=== PATIENT | female | born 1980 | race Caucasian/White ===

== ENCOUNTER 2016-09-28 07:36 | Emergency (ER) | payer MEDICAID ==
[2016-09-28 07:46] VITALS: BP 112/79; PULSE 91; RESP 20; TEMP 98.3; O2SAT 97
[2016-09-28] MEDS ORDERED: Silver Sulfadiazine 1% Cream (20 gm) TOP STA (08:01)
[2016-09-28] MEDS ORDERED: Naproxen 550 mg Tab PO STA (08:01)
--- NOTE | 2016-09-28 08:02 | C.PDOC ---
History Of Present Illness Patient is a 36 y/o female, whose PMHx includes, presents to the ED for evaluation of Time Seen by Provider: 09/28/16 07:53 Chief Complaint (Nursing): Abnormal Skin Integrity Past Medical History Reviewed: Historical Data, Nursing Documentation, Vital Signs Vital Signs: Last Vital Signs Temp 98.3 F 09/28/16 07:44 Pulse 91 H 09/28/16 07:44 Resp 20 09/28/16 07:44 BP 112/79 09/28/16 07:44 Pulse Ox 97 09/28/16 07:44 Family History: States: Unknown Family Hx - Social History Hx Tobacco Use: No Hx Alcohol Use: No Hx Substance Use: No - Immunization History Hx Tetanus Toxoid Vaccination: No Hx Influenza Vaccination: No Hx Pneumococcal Vaccination: No ED Course And Treatment O2 Sat by Pulse Oximetry: 97 - 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 - Scribe Statement The provider has reviewed the documentation as recorded by the Maruibbraxton Banda All medical record entries made by the Good were at my direction and personally dictated by me. I have reviewed the chart and agree that the record accurately reflects my personal performance of the history, physical exam, medical decision making, and the department course for this patient. I have also personally directed, reviewed, and agree with the discharge instructions and disposition.
--- NOTE | 2016-09-28 08:04 | C.PDOC ---
History Of Present Illness Patient is a 36 y/o female that presents to the ED for evaluation burn to upper medial and anterior aspect of right thigh. Patient states she burned her right thigh after dropping bowl of hot soup yesterday. Patient states she applied toothpaste, and cold cloth to affected area yesterday with no improvement. Patient states that she developed a blister on the burn area this morning which prompted her to visit ED. Notes she is not UTD with Tetanus. Otherwise, denies any fever, chills, discharge, redness, or any other associated symptoms at this time. Time Seen by Provider: 09/28/16 07:53 Chief Complaint (Nursing): Abnormal Skin Integrity History Per: Patient History/Exam Limitations: no limitations Onset/Duration Of Symptoms: Days (1) Current Symptoms Are (Timing): Still Present Location Of Injury: Right: Thigh, Anterior: Thigh Quality Of Symptoms: denies: Itching, Draining Recent travel outside of the [place]: No Additional History Per: Patient Past Medical History Reviewed: Historical Data, Nursing Documentation, Vital Signs Vital Signs: Last Vital Signs Temp 98.3 F 09/28/16 07:44 Pulse 91 H 09/28/16 07:44 Resp 20 09/28/16 07:44 BP 112/79 09/28/16 07:44 Pulse Ox 97 09/28/16 08:25 Family History: States: Unknown Family Hx - Social History Hx Tobacco Use: No Hx Alcohol Use: No Hx Substance Use: No - Immunization History Hx Tetanus Toxoid Vaccination: No Hx Influenza Vaccination: No Hx Pneumococcal Vaccination: No Review Of Systems Except As Marked, All Systems Reviewed And Found Negative. Constitutional: Negative for: Fever, Chills Musculoskeletal: Negative for: Leg Pain Skin: Positive for: Other (burn to right thigh) Neurological: Negative for: Weakness, Numbness Physical Exam - Physical Exam Appears: Non-toxic, No Acute Distress Skin: Warm, Dry, Other (10cm area of 1st degree burn with 3cm of vesicle in center at the anterior proximal and medial aspect of right thigh) Head: Atraumatic, Normacephalic Eye(s): bilateral: Normal Inspection Neck: Normal ROM, Supple Chest: Symmetrical Extremity: Normal ROM, No Tenderness, Capillary Refill (< 2 sec.), No Deformity , No Swelling Pulses: Left Femoral: Normal, Right Femoral: Normal Neurological/Psych: Oriented x3, Normal Speech, Normal Cognition, Normal Motor, Normal Sensation ED Course And Treatment O2 Sat by Pulse Oximetry: 97 (on RA) Pulse Ox Interpretation: Normal Progress Note: Patient was treated with Naproxen, and Silvadene topical cream. Patient was also given Tetanus Vaccination. Patient is being discharged home, with instructions to follow up with burn clinic. Medical Decision Making Medical Decision Makin36 y/o female that presents to the ED for evaluation burn to upper medial and anterior aspect of right thigh. Plan: - Silvadene - Naprosyn - Wound care - Tdap Pt instructed on proper wound care for her burn. Rx provided for silvadene and instructed on how to apply, advised to avoid sun exposure to wound. Otherwise pt advised to also f/u with her pmd or burn clinic in 2 days without fail for re -evaluation. Advised to return to the ER at any time for any new or worsening symptoms. 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 - Scribe Statement The provider has reviewed the documentation as recorded by the Maruibbraxton Banda All medical record entries made by the Good were at my direction and personally dictated by me. I have reviewed the chart and agree that the record accurately reflects my personal performance of the history, physical exam, medical decision making, and the department course for this patient. I have also personally directed, reviewed, and agree with the discharge instructions and disposition.
[2016-09-28] MEDS ORDERED: Silver Sulfadiazine 1% Cream (20 gm) ONE (08:06)
[2016-09-28] MEDS ORDERED: Naproxen 550 mg Tab PO ONE (08:06)
== END 2016-09-28 08:24 | disposition home or self-care (01) ==
LOC: C.ER 07:36
DX: T24.211A Burn of second degree of right thigh, initial encounter (principal); X10.1XXA Contact with hot food, initial encounter

== ENCOUNTER 2018-04-08 15:07 | Emergency (ER) | payer MEDICAID ==
[2018-04-08 15:26] VITALS: O2SAT 98
[2018-04-08] MEDS ORDERED: Lidocaine 5% Patch TD STA (17:23)
--- NOTE | 2018-04-08 17:26 | C.PDOC ---
History Of Present Illness Patient is a 38 year old female who presents to the ED c/o dry, nonproductive persistent cough that has been present for 2 months. Patient notes an associated bilateral chest wall plain from the constant coughing. She states that she takes Tylenol, but her sx reoccur once it wears off. She also reports goig to her PMD for the same sx in 02/2018, where she was given promethazine syrup with limited improvement. Patient denies fever, TAI/SOB, sick contacts, travel, weight loss, urinary symptoms, asthma, or smoking. PERSIST COUGH X 2 MO. DRY, SEALANT MIXER. NONEXERTIONAL. DENIES FEVER, TAI/SOB, SICK CONTACT EXPOSURE, TRAVEL, WT LOSS. PS +B/L CHEST WALL PAIN FROM CONSTANT COUGH. RELIEF W TYLENOL BUT RECURS ONCE MEDICATION WEARS OFF. SAW PMD FOR SAME 02/2018 GIVEN PROMETHAZINE SYRUP W LIMITED IMPROVE. NO SMOKE, ASTHMA, URI SX EXAM NARD NONTOXIC NONCACHECTIC LUNGS CTA B/L NO W/R/R SPEAKING FULL SENTENCES NO RETRACTIONS REMAINDER NEG Time Seen by Provider: 04/08/18 17:14 Chief Complaint (Nursing): Chest Pain History Per: Patient History/Exam Limitations: no limitations Onset/Duration Of Symptoms: Other (2 months) Current Symptoms Are (Timing): Still Present Reports Recently: Treated By A Physician Recent travel outside of the [place]: No Additional History Per: Patient Past Medical History Reviewed: Historical Data, Nursing Documentation, Vital Signs Vital Signs: Last Vital Signs Temp 98.8 F 04/08/18 15:23 Pulse 103 H 04/08/18 15:23 Resp 20 04/08/18 15:23 BP 138/82 04/08/18 15:23 Pulse Ox 98 04/08/18 15:23 - Medical History PMH: No Chronic Diseases Surgical History: No Surg Hx Family History: States: Unknown Family Hx - Social History Hx Tobacco Use: No Hx Alcohol Use: No Hx Substance Use: No - Immunization History Hx Tetanus Toxoid Vaccination: No Hx Influenza Vaccination: No Hx Pneumococcal Vaccination: No Review Of Systems Except As Marked, All Systems Reviewed And Found Negative. Constitutional: Negative for: Fever, Weight loss Respiratory: Positive for: Cough (dry and nonproductive), Other (chest wall pain ). Negative for: Shortness of Breath, SOB with Excertion Genitourinary: Negative for: Dysuria, Frequency, Hematuria Physical Exam - Physical Exam Appears: Non-toxic, No Acute Distress, Other (noncachetic ) Skin: Normal Color, Warm, Dry Head: Atraumatic, Normacephalic Oral Mucosa: Moist Neck: Normal ROM, Supple Chest: Symmetrical, No Deformity Cardiovascular: Rhythm Regular, No Murmur Respiratory: Normal Breath Sounds, No Rales, No Rhonchi, No Wheezing, Other (NARD, no retractions) Gastrointestinal/Abdominal: Soft, No Tenderness, No Guarding, No Rebound Extremity: Normal ROM Neurological/Psych: Oriented x3, Normal Speech (speaking full sentences), Normal Cognition ED Course And Treatment ECG: Interpreted By Me ECG Rhythm: Sinus Rhythm ECG Interpretation: Normal Rate From EC O2 Sat by Pulse Oximetry: 98 (on RA) Pulse Ox Interpretation: Normal - Radiology CXR: Interpreted by Me CXR Interpretation: Yes: No Acute Disease Progress Note: EKG and CXR ordered and reviewed. Lidoderm 2ea TD, Motrin 600mg PO, and Tylenol 975mg PO given. Disposition Counseled Patient/Family Regarding: Studies Performed, Diagnosis, Need For Followup, Rx Given - Disposition Referrals: Lalita Márquez MD [Staff Provider] - [facility] [Outside] [facility] [Outside] Disposition: HOME/ ROUTINE Disposition Time: 17:56 Condition: IMPROVED Prescriptions: Benzonatate [Tessalon Perles] 200 mg PO TID PRN #15 sgl PRN Reason: Cough Ibuprofen [Motrin] 600 mg PO Q6 #30 tab Instructions: Cough, Adult (DC) Forms: [facility] (Sao T[place]an), Work Excuse - Clinical Impression Clinical Impression: Cough - Scribe Statement The provider has reviewed the documentation as recorded by the Maruibbraxton Moran All medical record entries made by the Maruibbraxton were at my direction and personally dictated by me. I have reviewed the chart and agree that the record accurately reflects my personal performance of the history, physical exam, medical decision making, and the department course for this patient. I have also personally directed, reviewed, and agree with the discharge instructions and disposition.
[2018-04-08] MEDS ORDERED: Lidocaine 5% Patch TD ONE (17:46)
[2018-04-08 18:25] VITALS: BP 117/81; PULSE 97; RESP 18; TEMP 98
--- NOTE | 2018-04-08 18:27 | RAD ---
HISTORY: COUGH COMPARISON: None available. TECHNIQUE: Chest PA and lateral FINDINGS: LUNGS: Hyperinflation may be seen in the setting of COPD. Hazy opacity at the left lung base may reflect atelectasis or subtle infiltrate. Please note that chest x-ray has limited sensitivity for the detection of pulmonary masses. PLEURA: No significant pleural effusion identified. No definite pneumothorax . CARDIOVASCULAR: Heart size appears top normal. No atherosclerotic calcification present. OSSEOUS STRUCTURES: No acute osseous abnormality identified. VISUALIZED UPPER ABDOMEN: Unremarkable. OTHER FINDINGS: None. IMPRESSION: Hazy opacity at the left lung base may reflect atelectasis or subtle infiltrate. Study marked for PA review.
--- NOTE | 2018-04-09 20:33 | CARD ---
APPROVED REPORT Date of service: 04/08/2018 EKG Measurement Heart [id number] <Conclusion> Normal sinus rhythm Possible Left atrial enlargement Borderline ECG
== END 2018-04-08 18:25 | disposition home or self-care (01) ==
LOC: C.ER 15:07
DX: R05 Cough (principal)